=== PATIENT | male | born 1985 | race Caucasian/White ===

== ENCOUNTER 2018-10-09 13:13 | Emergency (ER) | payer OTHER ==
[~2018-10-09] VITALS: Ht 177.8 cm; Wt 54.4 kg
[~2018-10-09 13:13] MED LIST: CYCL10TA9 PO; METH4TAB PO
--- NOTE | 2018-10-09 13:26 | NUR ---
PATIENT GIVEN GEODON 20 MG IM IN LEFT VENTRAL GLUTEAL SITE DUE TO WAKING UP AND BEING COMBATIVE WITH STAFF.
[2018-10-09] MEDS ORDERED: ZIPRASIDONE 20 MG INJ (GEODON) VIAL IM ONE (13:30)
[2018-10-09 13:46] LABS: BASOPHILS % (AUTO) 0 % (0-10); EOSINOPHILS % (AUTO) 0 % (0-10); HEMATOCRIT 43 % (40-54); HEMOGLOBIN 14.7 G/DL (13.3-17.7); LYMPHOCYTES % (AUTO) 10 % (12-44); MEAN CORPUSCULAR HEMOGLOBIN 29 PG (25-34); MEAN CORPUSCULAR HGB CONC 35 G/DL (32-36); MEAN CORPUSCULAR VOLUME 85 FL (80-99); MEAN PLATELET VOLUME 10.9 FL (7.4-10.4); MONOCYTES # (AUTO) 0.6 X 10^3 (0.0-1.0); MONOCYTES % (AUTO) 6 % (0-12); NEUTROPHILS # (AUTO) 8.4 X 10^3 (1.8-7.8); NEUTROPHILS % (AUTO) 84 % (42-75); PLATELET COUNT 233 10^3/uL (130-400); RED CELL DISTRIBUTION WIDTH 13.2 % (10.0-14.5)
[2018-10-09 13:47] LABS: BILIRUBIN,URINE NEGATIVE (NEGATIVE); CLARITY,URINE CLEAR; COLOR,URINE YELLOW; GLUCOSE, URINE (UA) 1+ (NEGATIVE); KETONES,URINE 2+ (NEGATIVE); LEUKOCYTE ESTERASE ,URINE NEGATIVE (NEGATIVE); NITRITE,URINE NEGATIVE (NEGATIVE); PH,URINE 6 (5-9); PROTEIN,URINE 4+ (NEGATIVE); UROBILINOGEN,URINE NORMAL (NORMAL)
[2018-10-09] MEDS ORDERED: LIDOCAINE/EPI 2% 1:100,00 (XYLOCAINE) 20 ML VIAL ONE (13:49)
[2018-10-09] MEDS ORDERED: KETAMINE HCL 100 MG/ML 5 ML VIAL ONE (13:54)
[2018-10-09 13:59] LABS: AMORPHOUS SEDIMENT,UR LARGE AMOR URATES /LPF; BACTERIA,URINE NEGATIVE /HPF
--- NOTE | 2018-10-09 14:00 | NUR ---
6 CM LACERATION REPAIRED TO LEFT WRIST BY JUAN MAGANA AND STUDENT WITH ASSISTANCE BY BENITO VAN. 7 SUTURES PLACED.
[2018-10-09 14:07] LABS: ALANINE AMINOTRANSFERASE 36 U/L (0-55); ALBUMIN 4.8 GM/DL (3.2-4.5); ALKALINE PHOSPHATASE 46 U/L (40-136); BUN/CREATININE RATIO 10; CALCIUM 9.8 MG/DL (8.5-10.1); CARBON DIOXIDE 15 MMOL/L (21-32); CHLORIDE 103 MMOL/L (98-107); CREATININE SERUM 1.47 MG/DL (0.60-1.30); GFR ESTIMATED 56; GLUCOSE 146 MG/DL (70-105); POTASSIUM 3.4 MMOL/L (3.6-5.0); SALICYLATE < 5.0 MG/DL (5.0-20.0); SODIUM 140 MMOL/L (135-145); TOTAL PROTEIN 7.2 GM/DL (6.4-8.2)
[2018-10-09 14:09] LABS: AMPHETAMINE SCREEN, URINE NEGATIVE (NEGATIVE); BARBITURATE SCREEN URINE NEGATIVE (NEGATIVE); BENZODIAZEPINES SCREEN URINE NEGATIVE (NEGATIVE); CANNABINOID SCREEN, URINE POSITIVE (NEGATIVE); COCAINE SCREEN URINE NEGATIVE (NEGATIVE); METHADONE STAT NEGATIVE (NEGATIVE); METHAMPHETAMINE SCREEN URINE S NEGATIVE (NEGATIVE); OPIATE SCREEN URINE NEGATIVE (NEGATIVE); OXYCODONE STAT NEGATIVE (NEGATIVE); PROPOXYPHENE STAT NEGATIVE (NEGATIVE); TRICYCLIC ANTIDEPRESSANTS SCRE NEGATIVE (NEGATIVE)
[2018-10-09 14:09] LABS: ACETAMINOPHEN < 10 UG/ML (10-30)
[2018-10-09] MEDS ORDERED: TETANUS,DIPTH,PERTUSS P/F (BOOSTRIX) 0.5 ML VIAL IM ONE (14:30)
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
[2018-10-09 14:41] VITALS: BP 139/93
--- NOTE | 2018-10-09 14:57 | NUR ---
PATIENT REMAINS UNRESPONSIVE. NO RESPIRATORY DISTRESS PRESENT AT THIS TIME. VITAL SIGNS STABLE.
--- NOTE | 2018-10-09 14:59 | NUR ---
[facility]'S DEPARTMENT OFFICER SALLIE HAS BEEN PRESENT WSINCE PATIENT ARRIVED AND IS CURRENTLY REMAINING IN PATIENT'S ROOM.
[2018-10-09 15:00] VITALS: BP 134/96
--- NOTE | 2018-10-09 15:10 | NUR ---
PATIENT HAS 1 RING ON RIGHT HAND AND 3 RINGS ON LEFT HAND THAT ARE REMOVED AND TAKEN BY OFFICER SALLIE WITH [employer].
--- NOTE | 2018-10-09 15:11 | NUR ---
PATIENT STARTING TO WAKE UP, TRYING TO SIT UP IN BED. PATIENT DOES NOT SPEAK TO STAFF. HE PULLS OFF MASK THAT WAS PLACED ON PATIENT'S MOUTH AND NOSE DUE TO PATIENT ATTEMPTING TO SPIT ON STAFF.
[2018-10-09] MEDS ORDERED: SULF1TAB35 PO (15:26)
[2018-10-09 15:35] VITALS: BP 127/100
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
== END 2018-10-09 15:48 ==
LOC: ER 13:16 → EDBD 13:16 → ER 15:48
DX: S61.512A Laceration without foreign body of left wrist, initial encounter (principal); T75.4XXA Electrocution, initial encounter; F12.10 Cannabis abuse, uncomplicated; Z23 Encounter for immunization; X99.1XXA Assault by knife, initial encounter
CPT/HCPCS: 12032; 36415; 80053; 80306; 80320; 80329; 81000; 85025; 90715